=== PATIENT | male | born 1990 | race Caucasian/White ===

== ENCOUNTER 2018-07-09 08:05 | Day surgery (SDC) | payer OTHER, MEDICAID ==
[2018-07-09] MEDS ORDERED: LIDOCAINE 1% (MPF) 30 ML INJ (12:16)
[2018-07-09] MEDS ORDERED: morphine SULFATE/PF (10 MG/10 ML) INJ (12:16)
[2018-07-09] MEDS ORDERED: NEOMYC/POLYMYX/BACIT 30 GM OINT (12:16)
[2018-07-09] MEDS ORDERED: PROPOFOL 20 ML ×2 (12:24→12:31)
[2018-07-09] MEDS ORDERED: MIDAZOLAM 1 MG/ML 2 ML INJ ×2 (12:24→12:26)
[2018-07-09] MEDS ORDERED: LIDOCAINE 2% (SDV) 5 ML INJ (12:24)
[2018-07-09] MEDS ORDERED: morphine 2 MG INJ IV (12:30)
[2018-07-09] MEDS ORDERED: PROCHLORPERAZINE 10 MG INJ IV (12:30)
[2018-07-09] MEDS ORDERED: DIPHENHYDRAMINE 50 MG INJ IV (12:30)
[2018-07-09] MEDS ORDERED: oxyCODONE 5 MG TAB PO (12:30)
[2018-07-09] MEDS ORDERED: MEPERIDINE 25 MG INJ IV (12:30)
[2018-07-09] MEDS ORDERED: CEFAZOLIN 1 GM INJ (12:30)
[2018-07-09] MEDS ORDERED: HYDROmorphONE 1 MG/5 ML IV SYRINGE IV ×2 (12:30)
[2018-07-09] MEDS ORDERED: FENTAnyl 50 MCG/ML VIAL IV ×2 (12:30)
[2018-07-09] MEDS ORDERED: METOCLOPRAMIDE 10 MG INJ (12:31)
[2018-07-09] MEDS ORDERED: ONDANSETRON 4 MG INJ (12:31)
[2018-07-09] MEDS ORDERED: DEXAMETHASONE 4 MG/ML 1 ML INJ (12:31)
[2018-07-09] MEDS ORDERED: FAMOTIDINE 20 MG INJ (12:31)
[2018-07-09] MEDS ORDERED: FENTAnyl 50 MCG/ML VIAL (12:36)
[2018-07-09] MEDS ORDERED: ACETAMINOPHEN 1000MG/100ML IV 100 ML (12:48)
[2018-07-09] MEDS ORDERED: HYDROmorphONE 2 MG/ML SYG (13:19)
[2018-07-09] MEDS: ROPIVACAINE 0.5 % 30 ML VIAL (13:30)
[2018-07-09] MEDS: FENTAnyl 50 MCG/ML VIAL IV (14:13)
[2018-07-09] MEDS: ONDANSETRON 4 MG INJ IV (14:13)
[2018-07-09] MEDS: HYDROmorphONE 1 MG/5 ML IV SYRINGE IV (14:14)
[2018-07-09] MEDS: oxyCODONE 5 MG TAB PO (15:22)
== END 2018-07-09 15:40 | disposition home or self-care (01) ==
LOC: SDS 08:05
DX: M23.203 Derangement of unspecified medial meniscus due to old tear or injury, right knee (principal); M94.261 Chondromalacia, right knee
CPT/HCPCS: 29881